=== PATIENT | male | born 1980 | race Caucasian/White ===

== ENCOUNTER 2018-05-07 13:59 | Emergency (ER) | payer OTHER, SELFPAY ==
[2018-05-07] MEDS ORDERED: Orphenadrine Citrate 60 MG/2 ML VIAL ONE (14:28)
[2018-05-07] MEDS ORDERED: Acetaminophen 325 MG TAB ONE (14:32)
== END 2018-05-07 15:35 | disposition home or self-care (01) ==
LOC: NAV ERS 13:59
DX: M54.2 Cervicalgia (principal)
CPT/HCPCS: 96372; J2360

== ENCOUNTER 2022-11-06 20:28 | Emergency (ER) | payer SELFPAY ==
[2022-11-06] MEDS ORDERED: Ketorolac Tromethamine 60 MG/2 ML VIAL ONE (21:53)
[2022-11-06] MEDS ORDERED: Orphenadrine Citrate 60 MG/2 ML VIAL ONE (21:53)
[2022-11-06] MEDS ORDERED: Ketorolac Tromethamine 30 MG/ML VIAL ONE (21:54)
== END 2022-11-06 22:30 | disposition home or self-care (01) ==
LOC: NAV ERS 20:28
DX: M54.50 Low back pain, unspecified (principal)
CPT/HCPCS: 72100; 96372; J1885; J2360